=== PATIENT | male | born 1965 | race African-American/Black ===

== ENCOUNTER 2018-05-18 12:34 | Emergency (ER) | payer SELFPAY | END 2018-05-18 13:20 | disposition home or self-care (01) | LOC: ERS 12:34 | DX: B35.0 Tinea barbae and tinea capitis (principal); R09.81 Nasal congestion; I25.2 Old myocardial infarction; I50.9 Heart failure, unspecified; Z87.891 Personal history of nicotine dependence | CPT/HCPCS: 99283 ==

== ENCOUNTER 2019-06-30 11:34 | Emergency (ER) | payer BC | END 2019-06-30 12:10 | disposition home or self-care (01) | LOC: ERS 11:34 | DX: M25.541 Pain in joints of right hand (principal); I25.2 Old myocardial infarction; I50.9 Heart failure, unspecified; I25.118 Atherosclerotic heart disease of native coronary artery with other forms of angina pectoris; K21.9 Gastro-esophageal reflux disease without esophagitis; Z86.73 Personal history of transient ischemic attack (TIA), and cerebral infarction without residual deficits; Z87.891 Personal history of nicotine dependence; Z79.82 Long term (current) use of aspirin | CPT/HCPCS: 99283 ==